=== PATIENT | male | born 1945 | race Caucasian/White ===

== ENCOUNTER 2024-08-31 11:50 | Emergency (ER) | payer MEDICARE, SELFPAY ==
[2024-08-31 11:52] VITALS: BP 147/69
--- NOTE | 2024-08-31 13:10 | ED.SKININJ ---
HPI-Injury
<CHANEL Chopra - Last Filed: 08/31/24 14:43>
General
Chief Complaint: Skin Problem
Source: patient and family
Time Seen by Provider: 08/31/24 12:16
History of Present Illness-Injury
Initial Injury comments:
This is an 79 y/o M with a PMH of HTN, HLD, prediabetes, afib s/p pacemaker managed on coumadin who presents for skin redness x 2 weeks. He reports hitting his leg on a corner at [employer] about 2 weeks ago. He noticed the pain worsening with some
redness so he went to ED in [place] where he was diagnosed with cellulitis. He was given IV abx and recommended inpatient monitoring. Pt declined. He went to urgent care on Thursday, 08/28 and was given cephalexin and bactrim. He has been taking this for 2
days. He believed the lesion was worsening so he came in for evaluation. He is having 2/10 pain localized to the area. He endorses chronic bilateral lower extremity edema. Denies foreign body. He denies fever, chills, night sweats, decreased ROM,
stiffness, shortness of breath, chest pain.
He denies a PMH of DM, CHF, PE.
<eTo Key DO - Last Filed: 08/31/24 14:39>
General
Nursing documentation reviewed up to this point in time: agreed with
Past History
<Teo Key DO - Last Filed: 08/31/24 14:39>
Past History
ED Past Medical History: Arrthythmia (Atrial fibrillation), HTN and Hypercholesterolemia
ED Past Surgical History: Cardiac (Pacemaker)
Social History
Tobacco: Non-smoker
Alcohol: None
Drug: None
Living: alone
Review of Systems
<CHANEL Chopra - Last Filed: 08/31/24 14:43>
Review of Systems
Constitutional: Reports no symptoms
Respiratory: Reports no symptoms
Cardiac: Reports no symptoms
Musculoskeletal: Reports edema
Skin: Reports other (erythematous lesion to anterior lower extremity measuring approximately 6.5 cm x 7.5 cm )
<Teo Key DO - Last Filed: 08/31/24 14:39>
Review of Systems
Allergies reviewed?: Yes
ABD/GI: Reports no symptoms
: Reports no symptoms
Neurological: Reports no symptoms
Phy Exam
<Teo Key, DO - Last Filed: 08/31/24 14:39>
Physical Exam
Physical Exam:
Physical Exam
General: no apparent distress, not acutely ill
Neck: supple. no meningeal signs. normal posterior pharynx
Heart: s1/s2 regular rate and rhythm, no murmur. equal radial
pulses.
HEENT: Pupils equal round reactive to light, EOMI
Lungs: no acute respiratory distress. clear bilaterally
Abdomen: normal bowel sounds. not tender. no CVAT
Neuro: alert and oriented. no focal neurological deficits cranial nerves II through XII intact
Skin: Wound with surrounding erythema right lower extremity
Psychiatric: well kept. interactive and cooperative
Extremities: no edema. no calf tenderness. negative homans. good distal pulses
Course
<CHANEL Chopra - Last Filed: 08/31/24 14:43>
Orders/Labs/Results
Orders:
Orders
08/31/24 13:00
IV Insert/Care/Rem.- Treatment PRN
08/31/24 13:11
CRP [C-Reactive Protein] Urgent
Complete Blood Count/With Diff Urgent
Comprehensive Metabolic Panel Urgent
ESR [Erythrocyte Sed Rate] Urgent
Prothrombin Time Urgent
Abnormal Lab Results
08/31/24
13:11
Absolute Monos (auto) 0.8 H 10^3/uL
(0.1-0.6)
Monocytes % 9.8 H %
(1.7-9.3)
PT 27.6 H Sec
(11.4-14.6)
Chloride 109 H mmol/L
(98-107)
Carbon Dioxide 19 L mmol/L
(22-30)
BUN 30 H mg/dl
(9-20)
Glucose 102 H mg/dl
(70-99)
08/31/24 13:11
08/31/24 13:11
Vital Signs
Initial and Last Documented VS:
Initial Vital Signs
Temp Pulse Resp BP Pulse Ox
97.9 F 88 18 147/69 97
08/31/24 11:52 08/31/24 11:52 08/31/24 11:52 08/31/24 11:52 08/31/24 11:52
Last Documented Vital Signs
Temp Pulse Resp BP Pulse Ox
97.9 F 72 16 119/74 100
08/31/24 11:52 08/31/24 14:19 08/31/24 14:19 08/31/24 14:19 08/31/24 14:19
<Teo Key, DO - Last Filed: 08/31/24 14:39>
Orders/Labs/Results
Orders:
Orders
08/31/24 13:00
IV Insert/Care/Rem.- Treatment PRN
08/31/24 13:11
CRP [C-Reactive Protein] Urgent
Complete Blood Count/With Diff Urgent
Comprehensive Metabolic Panel Urgent
ESR [Erythrocyte Sed Rate] Urgent
Prothrombin Time Urgent
Abnormal Lab Results
08/31/24
13:11
Absolute Monos (auto) 0.8 H 10^3/uL
(0.1-0.6)
Monocytes % 9.8 H %
(1.7-9.3)
PT 27.6 H Sec
(11.4-14.6)
Chloride 109 H mmol/L
(98-107)
Carbon Dioxide 19 L mmol/L
(22-30)
BUN 30 H mg/dl
(9-20)
Glucose 102 H mg/dl
(70-99)
08/31/24 13:11
08/31/24 13:11
Vital Signs
Initial and Last Documented VS:
Initial Vital Signs
Temp Pulse Resp BP Pulse Ox
97.9 F 88 18 147/69 97
08/31/24 11:52 08/31/24 11:52 08/31/24 11:52 08/31/24 11:52 08/31/24 11:52
Last Documented Vital Signs
Temp Pulse Resp BP Pulse Ox
97.9 F 72 16 119/74 100
08/31/24 11:52 08/31/24 14:19 08/31/24 14:19 08/31/24 14:19 08/31/24 14:19
<Teo Key DO - Last Filed: 08/31/24 14:39>
MDM/Problems Addressed
Differential Diagnosis Includes:
Cellulitis, sepsis
MDM/Problems Addressed:
79-year-old male with mild wound infection right lower extremity right lower leg appears to be improving on Keflex and Bactrim will discontinue Bactrim due to concern for kidney and coagulopathy related to Coumadin.
Chronic conditions affecting care: Arrhythmia
Acute Exacerbation and/or Progression of Chronic Illness: Arrhythmia
<CHANEL Chopra - Last Filed: 08/31/24 14:43>
*Pulse Oximetry
SaO2: 97
Oxygen Mode of Delivery: Room air
<Teo Key DO - Last Filed: 08/31/24 14:39>
*Critical Care Note
Total Time (30-74mins, 75-104mins- exclusive of procedures): Not Applicable
Data Reviewed
Further Testing Considered But Not Given:
Ultrasound not indicated
<Teo Key DO - Last Filed: 08/31/24 14:39>
Patient Management
Social determinants of health affecting care: Living situation and Strong social support
Escalation/DeEscalation of care consider admission/obs:
Admit not indicated
ED Attending Note
<CHANEL Chopra - Last Filed: 08/31/24 14:43>
-
Portions of this chart may have been created with voice recognition software.� Occasional wrong word or��sound alike� substitutions may have occurred due to the inherent limitations of voice recognition software.
<Teo Key, - Last Filed: 08/31/24 14:39>
ED Attending Note
Patient seen and examined by attending physician: Yes
I performed a history and physical exam of patient and discussed management with resident, I reviewed resident's note and agree with documented findings and plan of care.: Yes
ED Attending Note:
I reviewed and agree with history and treatment plan by Aris Tabares. My exam is as above. My plan is above.
Discharge Plan
Departure
Patient Disposition: Home (Routine Discharge)
Date of Disposition: 08/31/24
Time of Disposition: 14:38
Patient with high blood pressure during this ER visit?: No
Condition: Good
Discharge Problem:
Leg wound, right
Instructions: Wound Care (DC), Cellulitis (Skin Infection), Adult (DC), [facility]
Prescriptions:
No Action
tolterodine 4 mg Capsule,Extended Release 24hr
4 mg PO DAILY
warfarin 7.5 mg Tablet
7.5 mg PO SUMOWEFR@0800
alendronate [Fosamax] 70 mg Tablet
70 mg PO SA
sulfamethoxazole-trimethoprim [Bactrim DS] 800-160 mg Tablet
1 tab PO BID
Rx Instructions:
patient to start 08/27/24 for 7 days
simvastatin [Zocor] 20 mg Tablet
20 mg PO DAILY
furosemide [Lasix] 20 mg Tablet
40 mg PO DAILY
losartan 100 mg Tablet
100 mg PO DAILY
finasteride 5 mg Tablet
5 mg PO DAILY
memantine 10 mg Tablet
10 mg PO BID
Trelegy Ellipta 100-62.5-25 mcg Blister With Device
1 inh INHALATION R DAILY
cephalexin 500 mg Capsule
500 mg PO QID
Rx Instructions:
for 7 days starting 08/27/24
warfarin 5 mg Tablet
5 mg PO TUTHSA@0800
vitamin B complex [B Complete] Tablet
1 tab PO DAILY
cholecalciferol (vitamin D3) [Vitamin D3] 25 mcg (1,000 unit) Tablet
25 mcg PO DAILY
omega [id number] oil [Fish Oil] 1,000 (120-180) mg Capsule
1 cap PO DAILY
coQ10 (ubiquinol) 100 mg Capsule
300 mg PO DAILY
Glucosamine Chondroitin 550-30-1 mg Capsule
1 cap PO DAILY
Referrals:
NONE,* [Family Provider, Internal Medicine]
Activity Restrictions/Additional Instructions:
Stop taking sulfamethoxazole/trimethoprim, continue taking cephalexin follow-up with wound care and primary care in 3 to 5 days. Return for any concerns
Interventions
Interventions:
*Risk Screen - Suicide Last Done: 08/31/24 11:52
*General Assessment Last Done: 08/31/24 14:19
*Neglect/Abuse Screening Last Done: 08/31/24 11:52
*ED- Fall Risk Assessment Last Done: 08/31/24 14:19
*ED COVID-19 Vaccine History Last Done: 08/31/24 14:19
Discharge Date and Time
Print Language: [id number]
[2024-08-31 13:19] LABS: % Basophils 0.4 % (0-2); % Eosinophils 3.2 % (0-6); % Immature Granulocytes 0.5 % (0-0.5); % Lymphocytes 22.8 % (20.5-51.1); % Monocytes 9.8 % (1.7-9.3); % Neutrophils 63.3 % (42.2-75.2); Absolute Eosinophils 0.3 10^3/uL (0-0.7); Absolute Lymphocytes 1.8 10^3/uL (1.2-3.4); Absolute Monocytes 0.8 10^3/uL (0.1-0.6); Absolute Neutrophils 4.9 10^3/uL (1.4-6.5); Hematocrit 43.6 % (39.0-52.0); Hemoglobin 15.1 g/dL (13.0-18.0); Mean Corp Hgb Conc. 34.6 g/dL (33.0-37.0); Mean Corpuscular Volume 89.5 fL (80.0-94.0); Mean Platelet Volume 10.1 fL (7.4-10.4); Nucleated Red Blood Cells % 0 % (-); Platelet Count 173 10^3/uL (130-400); Red Blood Cell Count 4.87 10^6/uL (4.70-6.10); Red Cell Dist. Width 13.3 % (11.5-14.5); White Blood Cell Count 7.7 10^3/uL (4.8-10.8)
[2024-08-31 13:26] LABS: Erythrocyte Sed Rate 11 mm/hour (0-20)
[2024-08-31 13:28] LABS: INR 2.52; PT 27.6 Sec (11.4-14.6)
[2024-08-31 13:44] LABS: ALT (SGPT) 34 U/L (0-50); AST (SGOT) 34 U/L (17-59); Albumin 4.4 g/dl (3.5-5.0); Alkaline Phosphatase 56 U/L (38-126); Blood Urea Nitrogen 30 mg/dl (9-20); Calcium 9.3 mg/dl (8.4-10.2); Carbon Dioxide 19 mmol/L (22-30); Chloride 109 mmol/L (98-107); Glucose 102 mg/dl (70-99); Potassium 4.5 mmol/L (3.5-5.1); Sodium 137 mmol/L (135-145); Total Bilirubin 0.8 mg/dl (0.2-1.3); Total Protein 7.1 g/dl (6.3-8.2); eGFR 55.19
[2024-08-31 14:19] VITALS: BP 119/74
== END 2024-08-31 15:01 | disposition home or self-care (01) ==
LOC: EMR 11:50
PROVIDERS: EMERGENCY PHYSICIAN Emergency Medicine
DX: S81.801A Unspecified open wound, right lower leg, initial encounter (principal); L08.9 Local infection of the skin and subcutaneous tissue, unspecified; W22.8XXA Striking against or struck by other objects, initial encounter; E78.00 Pure hypercholesterolemia, unspecified; I10 Essential (primary) hypertension; I48.91 Unspecified atrial fibrillation; Z95.0 Presence of cardiac pacemaker; Z79.01 Long term (current) use of anticoagulants
CPT/HCPCS: 99283; 80053; 85025; 85610; 85652; 86140